=== PATIENT | female | born 1955 | race American Indian/Alaskan Native ===

== ENCOUNTER 2016-12-16 01:12 | Inpatient (IN) | payer BC, OTHER ==
[2016-12-16 02:18] LABS: INR 0.98 (0.87-1.13)
[2016-12-16 02:19] LABS: Partial Thromboplastin Time 30.5 Sec. (24.2-36.6)
[2016-12-16 02:31] LABS: Basophils % (Auto) 0.4 % (0.0-1.8); Eosinophils % (Auto) 5.4 % (0.0-4.3); Hematocrit 33.6 % (30.3-42.9); Hemoglobin 10.9 gm/dl (10.1-14.3); Mean Corpuscular HGB Conc 33 % (30-34); Mean Corpuscular Hemoglobin 26 pg (28-32); Mean Corpuscular Volume 80 fl (79-97); Platelet Count 335 K/mm3 (140-440); Red Blood Count 4.22 M/mm3 (3.65-5.03); White Blood Count 12.3 K/mm3 (4.5-11.0)
[2016-12-16 02:35] LABS: Calcium 9.3 mg/dL (8.4-10.2); Chloride 100.2 mmol/L (98-107); Potassium 4.3 mmol/L (3.6-5.0)
[2016-12-16] MEDS ORDERED: NORMODYNE IV ONE ×2 (03:29→03:30)
[2016-12-16] MEDS ORDERED: ZOFRAN IV ONE (04:59)
[2016-12-16] MEDS ORDERED: MORPHINE IV ONE (04:59)
[2016-12-16] MEDS ORDERED: APRESOLINE IV ONE (05:01)
[2016-12-16] MEDS ORDERED: ROBITUSSIN PO ONE (05:01)
[2016-12-16] MEDS ORDERED: TESSALON PERLES PO ONE (05:04)
--- NOTE | 2016-12-16 05:05 | Emergency Department Report ---
HPI - General Chief Complaint: Chest Pain Time Seen by Provider: 12/16/16 04:07 - HPI HPI: The patient is a 61-year-old female with a history of diabetes, presents for evaluation of chest pain. The patient reports chest pain for the past 2 days, left sided in location, sharp and at times pressure-like in quality, radiating to the left arm, 8/10 in severity, and associated with episodic dyspnea. The patient also admits to coughing and nasal congestion for the past 2 weeks. The patient denies fever, trauma to the chest, abdominal pain, vomiting, syncope, hemoptysis, unilateral leg swelling, recent immobilization, history of DVT or PE , recent cancer. ED Past Medical Hx - Past Medical History Previous Medical History?: Yes Hx Hypertension: Yes Hx Diabetes: Yes - Surgical History Past Surgical History?: Yes Additional Surgical History: hysterectomy - Social History Smoking Status: Never Smoker Substance Use Type: None - Medications Home Medications: Home Medications Medication Instructions Recorded Confirmed Last Taken Type Lisinopril [Zestril TAB] 40 mg PO QDAY #30 tablet 04/10/15 12/16/16 10/10/15 Rx metFORMIN 1,000 mg PO BID #60 04/10/15 12/16/16 12/15/16 Rx Gabapentin [Neurontin] 300 mg PO BID #60 cap 10/15/15 12/16/16 Unknown Rx ED Review of Systems ROS: Stated complaint: MARGARETTE, CHEST PAIN Other details as noted in HPI Constitutional: denies: fever ENT: denies: throat or neck pain Respiratory: reports cough, shortness of breath Cardiovascular: reports chest pain Endocrine: denies unexplained weight loss or gain Gastrointestinal: denies: abdominal pain, nausea Genitourinary: denies: dysuria Musculoskeletal: denies: leg swelling Skin: denies: rash Neurological: denies: headache Hematological/Lymphatic: denies: easy bleeding or easy bruising Psych: denies sadness or hopelessness Physical Exam - Physical Exam Vital Signs: Vital Signs 12/16/16 12/16/16 12/16/16 01:29 01:57 02:00 Temperature 98.4 F Pulse Rate 97 H 104 H 97 H Respiratory 24 28 H 17 Rate Blood Pressure 226/121 222/107 O2 Sat by Pulse 100 98 Oximetry 12/16/16 12/16/16 12/16/16 02:10 02:20 02:30 Temperature Pulse Rate 100 H 96 H 96 H Respiratory 29 H 22 20 Rate Blood Pressure 222/107 211/107 221/112 O2 Sat by Pulse 99 98 98 Oximetry 12/16/16 12/16/16 12/16/16 02:40 02:50 03:00 Temperature Pulse Rate 97 H 94 H 96 H Respiratory 19 17 15 Rate Blood Pressure 221/112 216/108 220/114 O2 Sat by Pulse 98 99 98 Oximetry 12/16/16 12/16/16 03:18 03:45 Temperature Pulse Rate 87 95 H Respiratory Rate Blood Pressure 220/114 223/116 O2 Sat by Pulse 99 Oximetry Physical Exam: General: well-nourished, well-developed, no acute distress Head: Normocephalic, atraumatic Eyes: normal sclera ENT: Mucous membranes are pink and moist Neck: trachea midline, neck supple, No neck stiffness, no cervical adenopathy Respiratory: Breath sounds equal bilaterally, no wheezing, rales, or rhonchi Cardio: S1 and S2 present, no murmurs, rubs, gallops, capillary refill is brisk Abdomen: Normoactive bowel sounds, soft abdomen, no rigidity, no guarding or rebound tenderness Musc: No pitting edema Skin: No rash Neuro: no facial drooping, normal speech Psych: Normal affect ED Course Vital Signs 12/16/16 12/16/16 12/16/16 01:29 01:57 02:00 Temperature 98.4 F Pulse Rate 97 H 104 H 97 H Respiratory 24 28 H 17 Rate Blood Pressure 226/121 222/107 O2 Sat by Pulse 100 98 Oximetry 12/16/16 12/16/16 12/16/16 02:10 02:20 02:30 Temperature Pulse Rate 100 H 96 H 96 H Respiratory 29 H 22 20 Rate Blood Pressure 222/107 211/107 221/112 O2 Sat by Pulse 99 98 98 Oximetry 12/16/16 12/16/16 12/16/16 02:40 02:50 03:00 Temperature Pulse Rate 97 H 94 H 96 H Respiratory 19 17 15 Rate Blood Pressure 221/112 216/108 220/114 O2 Sat by Pulse 98 99 98 Oximetry 12/16/16 12/16/16 03:18 03:45 Temperature Pulse Rate 87 95 H Respiratory Rate Blood Pressure 220/114 223/116 O2 Sat by Pulse 99 Oximetry ED Medical Decision Making - Lab Data Result diagrams: 12/16/16 01:49 12/16/16 01:49 - Medical Decision Making The patient was seen and examined by myself. The patient is placed on a quality assurance monitor final and continuous pulse ox. On initial evaluation, the patient was found to be in no distress. Evaluation orders were placed. The patient is given IV morphine for pain, and IV labetalol and IV hydralazine for her elevated blood pressure. Lab results reveal a creatinine of 1.4, and elevated glucose 200. The patient is given IV insulin for treatment of hyperglycemia. Otherwise lab results were unrevealing of chest pain, including normal troponin level. Chest x-rays negative. EKG was negative for acute infarct. The on-call hospitalist service was contacted. They agreed to admit the patient for further treatment and close monitoring. The ED admit order was placed. The patient was admitted in guarded condition. Critical care attestation.: If time is entered above; I have spent that time in minutes in the direct care of this critically ill patient, excluding procedure time. ED Disposition Clinical Impression: Acute chest pain, Hypertensive crisis, Acute hyperglycemia, ROXANNE (acute kidney injury) Disposition: OP ADMITTED IP TO THIS HOSP Is pt being admited?: Yes Does the pt Need Aspirin: Yes Condition: Fair Instructions: Chest Pain (ED) Referrals: PRIMARY CARE, [Primary Care Provider] - 3-5 Days Time of Disposition: 05:01
[2016-12-16] MEDS ORDERED: BABY ASPIRIN PO ONE (05:06)
[2016-12-16] MEDS ORDERED: TYLENOL PO PRN (05:22)
[2016-12-16] MEDS ORDERED: MORPHINE IV PRN ×2 (05:22→05:39)
[2016-12-16] MEDS ORDERED: NITROSTAT SL PRN (05:22)
[2016-12-16] MEDS ORDERED: ZOFRAN IV PRN (05:22)
[2016-12-16] MEDS ORDERED: NACL 0.9% 1000 ML 1,000 ML IV SCH (06:00)
[2016-12-16] MEDS: NITRO-BID 2% TP SCH ×4 (06:12→18:12)
[2016-12-16] MEDS: HEPARIN SUB-Q SCH ×3 (06:12→21:45)
--- NOTE | 2016-12-16 06:35 | Admit Criteria Form ---
Admission Criteria Documentation: HYPERTENSION Clinical Indications for Admission to Inpatient Care ( Place "X" for any and all applicable criteria): Admission is indicated for ANY ONE of the following(1)(2)(3)(4): [X ]I. Hypertensive emergency, with evidence of acute and progressing target organ disease as indicated by ANY ONE of the following: [ ]a) Hypertensive encephalopathy (eg, confusion, altered mental status) [ ]b) Cerebral infarction [ ]c) Intracranial hemorrhage [ ]d) Myocardial ischemia or infarction [ ]e) Pulmonary edema [ ]f) Aortic dissection [ ]g) Seizure [X ]h) Acute renal insufficiency [ ]i) Papilledema [ ]j) Microangiopathic hemolytic anemia [ ]II. Adrenergic crisis (eg, severe hypertension due to pheochromocytoma crisis, cocaine or amphetamine intoxication, or clonidine withdrawal) [X ]III. Severe hypertension (SBP greater than 180 mmHg or DBP greater than 110 mmHg or greater than the 95th percentile for age, gender, and height in pediatric patients) that cannot be controlled (eg, to SBP less than 160 mmHg and DBP less than 100 mmHg in adults) by treatment with oral medication in emergency department or observation care Extended stay beyond goal length of stay may be needed for(11)(12)(13): [ ]a) Persistent hypertensive encephalopathy [ ]b) Continuation of pulmonary edema [ ]c) Recurring or persistent severe hypertension [ ]d) Target organ damage (eg, angina, stroke, aortic dissection) [ ]e) Associated renal insufficiency The original [employer] content created by [employer] has been revised. The portions of the content which have been revised are identified through the use of italic text or in bold, and [facility] has neither reviewed nor approved the modified material. All other unmodified content is copyright [employer]. Please see references footnoted in the original [employer] edition 2016 Admission Criteria Met: Yes
[2016-12-16] MEDS ORDERED: AFRIN ONE (07:44)
[2016-12-16] MEDS: AFRIN NS PRN (07:50)
--- NOTE | 2016-12-16 08:17 | XRay Report ---
AP CHEST : 12/16/16 01:12:00 CLINICAL: Chest pain. COMPARISON:04/07/15 FINDINGS: Normal heart and pulmonary vessels. The lungs are normally expanded and clear except for a calcified granuloma in the left lower lobe. The bones and soft tissues are unremarkable. IMPRESSION: No acute cardiopulmonary process. Old granulomatous disease.
[2016-12-16] MEDS ORDERED: NON-FORMULARY (Metformin 1,000 MG) PO SCH (10:00)
--- NOTE | 2016-12-16 11:24 | History and Physical Report ---
CHIEF COMPLAINT: Chest pain. Other complaint includes nasal congestion. HISTORY OF PRESENT ILLNESS: The patient is a 61-year-old female who said she has been having pressure-like chest pain located in the precordial and retrosternal area radiating to the left upper extremity. Pain has been going on and off for about 2 weeks and was associated with shortness of breath and also pain is associated with cough and congestion in terms of nausea and diaphoresis. PAST MEDICAL HISTORY: Pertinent for hypertension, diabetes mellitus. PAST SURGICAL HISTORY: Pertinent for hysterectomy. FAMILY HISTORY: Noncontributory. SOCIAL HISTORY: The patient does not smoke, does not drink alcohol and does not use illicit drugs. MEDICATIONS: The patient is on lisinopril 40 mg by mouth daily, metformin 1000 mg by mouth twice daily, Neurontin 300 mg by mouth twice daily. ALLERGIES: THE PATIENT IS ALLERGIC TO IODINATED CONTRAST MEDIA. REVIEW OF SYSTEMS: CONSTITUTIONAL: There is no fever, no chills. Diaphoresis present. HEENT: There is no headache or sore throat. CARDIOVASCULAR SYSTEM: Chest pain present. No orthopnea. RESPIRATORY: Shortness of breath present. Cough present. Congestion present. GASTROINTESTINAL SYSTEM: There is no nausea. There is no vomiting. No abdominal pain, diarrhea or constipation. NEUROLOGICAL: There is no numbness, no dizziness, no altered mental status. MUSCULOSKELETAL: There is no joint pain or swelling. DERMATOLOGICAL: There is no skin rash or itching. GENITOURINARY: There is no dysuria, hematuria or flank pain. Rest of system review is normal. PHYSICAL EXAMINATION: GENERAL: At the time of exam, the patient was found to be alert, oriented x 3 and not in acute distress. VITAL SIGNS: Shows normal temperature with pulse of 89, respirations 16, blood pressure 203/93, O2 sat of 96% on room air. HEENT: Showed pupils to be equal, round, reactive to light and accommodation. Extraocular muscles are intact. NECK: Supple with no JVD or carotid bruits. CARDIOVASCULAR SYSTEM: Show first and second heart sounds with no gallops or rubs. RESPIRATORY: Showed good air entry on both sides of the lungs with no abnormal breath sounds. GASTROINTESTINAL: Show abdomen to be full, soft, nontender with no organomegaly or rigidity. NEUROLOGIC: Neuro exam shows no focal deficit. MUSCULOSKELETAL SYSTEM: Show no joint swelling or tenderness. DERMATOLOGICAL SYSTEM: Show no skin rash. GENITOURINARY: Showing no costovertebral angle tenderness. PERTINENT LABORATORY DATA AND IMAGING STUDIES: The patient had chest x-ray done with no report of any acute cardiopulmonary lesion. LAB RESULTS: CBC shows elevated white count of 12,300 with normal hemoglobin. CBC differential shows high monocyte pointing to allergic reaction. The patient's coagulation study was unremarkable. Chemistry shows elevated BUN of 28 with elevated creatinine of 1.4 and high blood glucose of 224. Troponin level was normal. DIAGNOSES: 1. Chest pain. 2. Acute kidney injury. PLAN: The patient will be admitted to medical floor on telemetry using chest pain pathway. We will have cardiac enzymes, troponin, total CK, and CK-MB checked q. 6 hours x 2 more levels. The patient will be on nitro paste 1 inch to anterior chest wall q. 6 hours and will be on IV morphine 2 mg every 2 hours as needed for pain and IV Zofran 4 mg every 6 hours as needed for nausea and vomiting. The patient will be on IV normal saline at 100 mL an hour. We will have basic metabolic panel checked tomorrow morning 12/17/2016. The patient will be on aspirin 325 mg by mouth daily and will be on Tylenol 650 mg every 4 hours for fever and headache and will be on oxygen per protocol. The patient will have Lexiscan stress test done in the morning. The patient's home medications will be reconciled and applied accordingly. JOB# [id number] [facility]/GUEVARA MTDCarmela
[2016-12-16] MEDS: ZESTRIL PO SCH (11:47)
[2016-12-16] MEDS: NEURONTIN PO SCH ×2 (11:47→21:45)
[2016-12-16] MEDS: GLUCOPHAGE PO SCH ×2 (11:48→21:57)
[2016-12-16 13:02] LABS: Creatine Kinase MB 5.3 ng/mL (0.0-4.0)
--- NOTE | 2016-12-16 14:52 | Discharge Summary ---
Providers - Providers Date of Admission: 12/16/16 05:21 Attending physician: MEGAN GONZALEZ MD Primary care physician: DIRECTOR OF CONTENT MARKETING Hospitalization Condition: Fair Hospital course: 61-year-old woman with a past medical history of hypertension who presented with chest pain. ACS was ruled out by negative troponins, she was planned for MPI, however MPI was canceled by cardiology given that she just had a negative cardiac cath in 2014. Patient admitted that her pain started after she was suffering from upper x-ray tract infection with stuffy nose and headache. Chest pain was most likely due to costochondritis related to upper 3 tract infection. She was given symptomatic relief medication for upper respiratory tract infection. Advised take NSAID as needed for chest pain. Discharge diagnoses Upper respiratory tract infection Costochondritis Acute sinusitis Disposition: DISCHARGED TO HOME OR SELFCARE Time spent for discharge: 35 minutes Core Measure Documentation - Palliative Care Palliative Care/ Comfort Measures: Not Applicable - Core Measures Any of the following diagnoses?: none Exam - Constitutional Vitals: Temp Pulse Resp BP Pulse Ox 98.0 F 92 H 14 169/89 98 12/16/16 10:47 12/16/16 10:47 12/16/16 10:47 12/16/16 10:47 12/16/16 10:47 General appearance: Present: no acute distress, well-nourished - EENT Eyes: Present: PERRL ENT: hearing intact, clear oral mucosa - Neck Neck: Present: supple, normal ROM - Respiratory Respiratory effort: normal Respiratory: bilateral: CTA - Cardiovascular Heart Sounds: Present: S1 & S2. Absent: rub, click - Extremities Extremities: pulses symmetrical, No edema Peripheral Pulses: within normal limits - Abdominal General gastrointestinal: Present: soft, non-tender, non-distended, normal bowel sounds Female genitourinary: Present: normal - Integumentary Integumentary: Present: clear, warm, dry - Musculoskeletal Musculoskeletal: gait normal, strength equal bilaterally - Psychiatric Psychiatric: appropriate mood/affect, intact judgment & insight - Neurologic Neurologic: CNII-XII intact, moves all extremities Plan Follow up with: PRIMARY CARE, [Primary Care Provider] - 3-5 Days Forms: Work/School Release Form Prescriptions: Aspirin EC [Aspirin Enteric Coated TAB] 81 mg PO QDAY #30 tablet. Fluticasone [Flonase] 100 mcg NS QDAY PRN #1 bottle PRN Reason: Allergy Symptoms Losartan [Cozaar] 100 mg PO QDAY #30 tablet Sodium Chloride [Haines] 37.5 ml NS QID #1 spray
[2016-12-16 17:37] LABS: Creatine Kinase MB 4.3 ng/mL (0.0-4.0)
[2016-12-16] MEDS ORDERED: FLONASE NS PRN (18:45)
[2016-12-16] MEDS: DEEP SEA NS SCH (21:44)
[2016-12-17] MEDS: NITRO-BID 2% TP SCH ×2 (06:07→10:57)
[2016-12-17] MEDS: HEPARIN SUB-Q SCH (06:09)
[2016-12-17] MEDS: AFRIN NS PRN (06:47)
[2016-12-17 08:19] LABS: BUN/Creatinine Ratio 15.29; Calcium 8.8 mg/dL (8.4-10.2); Chloride 106.7 mmol/L (98-107); Potassium 4.1 mmol/L (3.6-5.0)
[2016-12-17 09:21] VITALS: BP 187/91
--- NOTE | 2016-12-17 09:57 | Query- Chest Pain ---
Elsie Joyner Shama Date: 12/17/16 Front Desk Administrator/CDS: Han Vásquezmarcelamisha Phone#: [phone] Exercise your independent professional judgment when responding to query. Questions asked do not imply a particular answer is desired or expected. We greatly appreciate your clarification on this issue. Clinical Documentation States: 61 year old female was admitted on 12/16/16. The discharge summary states " Hospital course: Negative cath in 2014 chest pain costochondritis congestion, URTA " Please document the etiology of Chest Pain: [ ] Myocardial Infarction [ ] Pneumonia [ ] Mediastinitis [ ] Costochondritis [ ] Pulmonary Embolism [ ] Coronary Artery Disease [ ] GERD [ ] Other: [ ] Comment/Explanation: Present on Admission: [ ] Yes (Y) [ ] Clinically undeterminable (W) [ ] No(N) Please document response in your Progress Notes and/or Discharge Summary and indicate if the condition was present on admission. GABO
[2016-12-17] MEDS ORDERED: ASPIRIN PO SCH (10:00)
--- NOTE | 2016-12-17 10:01 | Query- Renal Failure ---
Elsie Joyner____[place]ia Date:____12/17/16 Artist Relationship Manager/CDS:___Han Castro Phone#:____[phone] Exercise your independent professional judgment when responding to query. Questions asked do not imply a particular answer is desired or expected. We greatly appreciate your clarification on this issue. Clinical Documentation States: 61 year old female was admitted on 12/16/16. The H&P states " Acute kidney injury" The discharge summary states " Hospital course: Negative cath in 2014 chest pain costochondritis congestion, URTA " Clinical Findings Show: 12/16/16 12/17/16 Creatinine: 1.4 1.7 Please clarify if you mean: Acute Renal Failure with or due to: [ ] Tubular Necrosis [ ] Medullary Necrosis [x ] Vasomotor Nephropathy [ ] Shock Kidney [ ] Tubular Nephrosis [ ] Renal Tubular Stasis [ ] Cortical Necrosis [ ] Acute Renal Failure (unspecified) [ ] Lower Tubular Nephrosis [ ] Other: [ ] Not Applicable Present on Admission: [x ] Yes (Y) [ ] Clinically undeterminable (W) [ ] No (N) Please also document response in your Progress Notes and/or Discharge Summary and indicate if the condition was present on admission. HERLINDAD
[2016-12-17] MEDS: ZESTRIL PO SCH (10:57)
[2016-12-17] MEDS: NEURONTIN PO SCH (10:57)
[2016-12-17] MEDS: DEEP SEA NS SCH (11:00)
== END 2016-12-17 11:50 | disposition home or self-care (01) | DRG 205 ==
LOC: ED 01:12 → 4A 05:21
PROVIDERS: ADMIT Internal Medicine; ATTEND Internal Medicine
DX: M94.0 Chondrocostal junction syndrome [Tietze] (principal); N17.0 Acute kidney failure with tubular necrosis; I16.9 Hypertensive crisis, unspecified; I10 Essential (primary) hypertension; E11.65 Type 2 diabetes mellitus with hyperglycemia; J06.9 Acute upper respiratory infection, unspecified; J01.90 Acute sinusitis, unspecified; Z90.710 Acquired absence of both cervix and uterus
CPT/HCPCS: 36415; 71010; 80048; 82140; 82550; 82553; 82805; 82962; 83880; 84484; 85025; 85610; 85730; 93005; 93010; 96374; 96375; 99285; J0360; J1644; J1815; J2270; J2405; J7030

== ENCOUNTER 2017-09-22 21:10 | Inpatient (IN) | payer BC, OTHER ==
[2017-09-22] MEDS ORDERED: ASPIRIN PO ONE (21:30)
[2017-09-22] MEDS ORDERED: CATAPRES PO ONE (21:31)
[2017-09-22 21:47] LABS: Basophils # (Auto) 0.1 K/mm3 (0.0-0.1); Basophils % (Auto) 0.7 % (0.0-1.8); Eosinophils # (Auto) 0.5 K/mm3 (0.0-0.4); Eosinophils % (Auto) 4.3 % (0.0-4.3); Hematocrit 27.2 % (30.3-42.9); Hemoglobin 8.9 gm/dl (10.1-14.3); Lymphocytes # (Auto) 3.8 K/mm3 (1.2-5.4); Lymphocytes % (Auto) 30.2 % (13.4-35.0); Mean Corpuscular HGB Conc 33 % (30-34); Mean Corpuscular Hemoglobin 26 pg (28-32); Mean Corpuscular Volume 80 fl (79-97); Monocytes # (Auto) 1.1 K/mm3 (0.0-0.8); Monocytes % (Auto) 8.8 % (0.0-7.3); Platelet Count 404 K/mm3 (140-440); Red Blood Count 3.41 M/mm3 (3.65-5.03); Red Cell Distribution Width 15.2 % (13.2-15.2)
[2017-09-22 22:01] LABS: Calcium 8.7 mg/dL (8.4-10.2)
[2017-09-23] MEDS ORDERED: APRESOLINE IV ONE (01:00)
--- NOTE | 2017-09-23 01:07 | Emergency Department Report ---
ED Chest Pain HPI - General Chief Complaint: Chest Pain Stated Complaint: CP Time Seen by Provider: 09/23/17 00:45 Source: patient Mode of arrival: Ambulatory Limitations: No Limitations - History of Present Illness Initial Comments: 61-year-old -German female presents to the emergency department with complaint of some midsternal chest pain/heaviness that has been going on intermittently over the past few weeks and/or month, but worsened this evening while she was at the movies. It is associated with some shortness of breath but she denies any nausea, vomiting, back pain or diaphoresis. She did not take anything for her symptoms were to presentation. 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 She denies any tobacco or illicit drug use or abuse. No recent travel or sick contacts at home. She has a history of [id number] diabetes and hypertension. She has been out of her hypertension medication, losartan, the past 2 weeks and presents with very elevated blood pressure. She denies any history of MS and had a heart catheterization done here in March 2015 that showed normal coronaries and an ejection fraction of 55-60%. Severity scale (0 -10): 6 - Related Data Previous Rx's Medication Instructions Recorded Last Taken Type metFORMIN 1,000 mg PO BID #60 04/10/15 12/15/16 Rx Gabapentin [Neurontin] 300 mg PO BID #60 cap 10/15/15 Unknown Rx Aspirin EC [Aspirin Enteric Coated 81 mg PO QDAY #30 tablet. 12/16/16 Unknown Rx TAB] Sodium Chloride [[place]] 37.5 ml NS QID #1 spray 12/16/16 Unknown Rx Fluticasone [Flonase] 100 mcg NS QDAY PRN #1 bottle 12/17/16 Unknown Rx Losartan [Cozaar] 100 mg PO QDAY #30 tablet 12/17/16 Unknown Rx Allergies Allergy/AdvReac Type Severity Reaction Status Date / Time Iodinated Contrast- Oral and Allergy Severe Swelling Verified 04/08/15 16:53 IV Dye Heart Score - HEART Score History: Moderately suspicious EKG: Non-specific Age: 45-65 Risk factors: 1-2 risk factors Troponin: > 3x normal limit HEART Score: 6 - Critical Actions Critical Actions: 4-6 pts:12-16.6% risk of adverse cardiac event. Should be admitted ED Review of Systems ROS: Stated complaint: CP Other details as noted in HPI Comment: All other systems reviewed and negative Constitutional: denies: chills, fever Eyes: denies: eye pain, eye discharge, vision change ENT: denies: ear pain, throat pain Respiratory: shortness of breath. denies: cough Cardiovascular: chest pain. denies: palpitations Gastrointestinal: denies: abdominal pain, nausea, diarrhea Genitourinary: denies: urgency, dysuria, discharge Musculoskeletal: denies: back pain, joint swelling, arthralgia Skin: denies: rash, lesions Neurological: denies: headache, weakness, paresthesias ED Past Medical Hx - Past Medical History Previous Medical History?: Yes Hx Hypertension: Yes Hx Diabetes: Yes - Surgical History Past Surgical History?: Yes Additional Surgical History: hysterectomy - Social History Smoking Status: Never Smoker Substance Use Type: None - Medications Home Medications: Home Medications Medication Instructions Recorded Confirmed Last Taken Type metFORMIN 1,000 mg PO BID #60 04/10/15 12/16/16 12/15/16 Rx Gabapentin [Neurontin] 300 mg PO BID #60 cap 10/15/15 12/16/16 Unknown Rx Aspirin EC [Aspirin Enteric Coated 81 mg PO QDAY #30 tablet.dr 12/16/16 Unknown Rx TAB] Sodium Chloride [[place]] 37.5 ml NS QID #1 spray 12/16/16 Unknown Rx Fluticasone [Flonase] 100 mcg NS QDAY PRN #1 bottle 12/17/16 Unknown Rx Losartan [Cozaar] 100 mg PO QDAY #30 tablet 12/17/16 Unknown Rx ED Physical Exam - General Limitations: No Limitations - Other Other exam information: GENERAL: The patient is well-developed well-nourished. HENT: Normocephalic. Atraumatic. Patient has moist mucous membranes. EYES: Extraocular motions are intact. Pupils equal reactive to light bilaterally. NECK: Supple. Trachea is midline. CHEST/LUNGS: Slightly coarse breath sounds throughout the chest. No tachypnea or accessory muscle use. There is no respiratory distress noted. Chest pain is not reproducible to palpation of the chest wall. HEART/CARDIOVASCULAR: Regular. There is no tachycardia. There is no murmur. ABDOMEN: Abdomen is soft, nontender. Patient has normal bowel sounds. There is no abdominal distention. SKIN: Skin is warm and dry. NEURO: The patient is awake, alert, and oriented. The patient is cooperative. The patient has no focal neurologic deficits. The patient has normal speech. MUSCULOSKELETAL: There is no tenderness or deformity. There is no limitation range of motion. There is no evidence of acute injury. ED Course Vital Signs 09/22/17 09/22/17 09/22/17 21:25 21:36 22:32 Temperature 98.4 F Pulse Rate 104 H 104 H 92 H Respiratory 22 14 Rate Blood Pressure 209/105 209/105 Blood Pressure 193/96 [Left] O2 Sat by Pulse 94 98 Oximetry 09/23/17 09/23/17 09/23/17 01:11 01:15 01:17 Temperature Pulse Rate 95 H Respiratory 17 18 Rate Blood Pressure 196/102 Blood Pressure [Left] O2 Sat by Pulse 97 97 95 Oximetry 09/23/17 09/23/17 09/23/17 01:30 02:00 02:11 Temperature Pulse Rate 93 H 86 85 Respiratory 23 21 Rate Blood Pressure 183/92 197/106 197/106 Blood Pressure [Left] O2 Sat by Pulse 96 97 Oximetry 09/23/17 09/23/17 09/23/17 02:30 03:00 03:30 Temperature Pulse Rate 88 86 88 Respiratory 18 17 17 Rate Blood Pressure 173/86 163/82 157/79 Blood Pressure [Left] O2 Sat by Pulse 96 95 96 Oximetry 09/23/17 03:47 Temperature Pulse Rate 95 H Respiratory Rate Blood Pressure 176/88 Blood Pressure [Left] O2 Sat by Pulse Oximetry LEX score - Lex Score Age > 65: (0) No Aspirin use within the Past 7 Days: (0) No 3 or more CAD Risk Factors: (1) Yes 2 or more Angina events in past 24 hrs: (1) Yes Known CAD with more than 50% Stenosis: (0) No Elevated Cardiac Markers: (1) Yes ST Deviation Greater than 0.5mm: (0) No LEX Score: 3 ED Medical Decision Making - Lab Data Result diagrams: 09/22/17 21:38 09/22/17 21:38 - EKG Data -: EKG Interpreted by Mo EKG shows normal: sinus rhythm, axis, intervals, QRS complexes (LVH), ST-T waves Rate: tachycardia (105 bpm) - EKG Data When compared to previous EKG there are: previous EKG unavailable Interpretation: LVH (with mild tachycardia at 105 bpm) - Radiology Data Radiology results: image reviewed interpreted by me: Chest x-ray shows some cardiomegaly and some pulmonary vascular congestion concerning for possible CHF. No obvious pneumonia. - Medical Decision Making Patient presents with some acute on chronic chest pain but worse today than usual. EKG shows some LVH but otherwise no ST elevation MS. The patient has what appears to be acute kidney injury and renal failure. Labs show elevated troponins. They are trending down but unknown if the troponins are elevated secondary to coronary artery disease versus her renal insufficiency. Chest x- ray shows possible mild CHF. She does not appear significantly volume overloaded and therefore with her renal insufficiency I will hold off on starting diuresis and she will be seen later this morning or early afternoon by cardiology. D-dimer came back elevated equivocal and I was going to get a VQ scan to rule out pulmonary embolism, but this will have to wait until later this afternoon as the nuclear medicine team does not have the appropriate chemicals to run that test. All the labs and imaging studies thus far have been discussed with the patient as well as the plan for admission and she understands and agrees the plan. The patient has been accepted for admission by the hospitalist, Dr. Hernandez. - Differential Diagnosis MS, CHF, Pneumonia, PE Critical Care Time: No Critical care attestation.: If time is entered above; I have spent that time in minutes in the direct care of this critically ill patient, excluding procedure time. ED Disposition Clinical Impression: Hypertensive urgency, Elevated troponin Chest pain Qualifiers: Chest pain type: unspecified Qualified Code(s): R07.9 - Chest pain, unspecified Acute renal failure Qualifiers: Acute renal failure type: unspecified Qualified Code(s): N17.9 - Acute kidney failure, unspecified Disposition: OP ADMIT IP TO THIS HOSP Is pt being admited?: Yes Condition: Stable Time of Disposition: 02:53
--- NOTE | 2017-09-23 01:43 | XRay Report ---
FINAL REPORT EXAM: XR CHEST ROUTINE 2V HISTORY: Chest pain TECHNIQUE: PA and lateral views of the chest were obtained. PRIORS: None. FINDINGS: Mild enlargement of the cardiac silhouette. Central increased interstitial markings with suggested mild cephalization and small bilateral pleural effusions. There is no lobar consolidation. No acute osseous abnormality. IMPRESSION: Enlargement of the cardiac silhouette with increased interstitial markings, cephalization small effusions. Findings suggestive of congestive heart failure. Correlation with clinical exam requested.
[2017-09-23 02:40] LABS: Chol/HDL Ratio 6.58 %
[2017-09-23] MEDS ORDERED: NORVASC PO ONE (03:04)
--- NOTE | 2017-09-23 03:07 | History and Physical Report ---
History of Present Illness Date of examination: 09/23/17 Chief complaint: Chest pressure History of present illness: 61-year-old -Samo[place] female with past medical history significant for hypertension, diabetes mellitus type 2, allergic rhinitis, CKD presented to the emergency department with complaints of chest pressure that has been going on for the last few weeks getting worse since last night. Midsternal chest pressure , 10/10 in intensity, with no radiation, associated with shortness of breath, no alleviating or aggravating factors identified. Patient has associated shortness of breath and minimal feet swelling. Patient ran out of her blood pressure medications for the last couple of weeks because of financial issues. Patient was admitted for chest pain previously in cardiac cath was done 9 months ago and was clean. REVIEW OF SYSTEMS: GENERAL: no weight change, no fatigue, no fever HEAD: no head ache EYES: no blurry vision, no acute visual loss EARS: no hearing loss, no discharge, no earache NOSE: no stuffiness, no sneezing, no discharge MOUTH, THROAT AND NECK: no bleeding gums, no sore throat, no swollen neck CARDIAC: As stated in the HPI. RESPIRATORY: As stated in the HPI. GI: no decreased appetite, no nausea, no vomiting, no dysphagia, no diarrhea, no constipation, no abdominal pain URINARY: no change in frequency, no urgency, no polyuria, no hematuria, no incontinence MUSCULOSKELETAL: no muscle weakness, no pain, no joint stiffness NEUROLOGIC: no loss of sensation/numbness, no tingling, no tremors, no weakness/ paralysis HEMATOLOGIC: no anemia, no easy bruising SKIN: no rashes ENDOCRINE: no heat/cold intolerance, no polyuria, no polydipsia, no thyroid problems PSYCHIATRIC: no anxiety, no depression, no suicidal ideations Past History Past Medical History: diabetes, hypertension, renal failure Past Surgical History: hysterectomy Social history: full code. denies: smoking, alcohol abuse, prescription drug abuse, IV drug use Family history: CAD (dad), diabetes (mom) Medications and Allergies Allergies Allergy/AdvReac Type Severity Reaction Status Date / Time Iodinated Contrast- Oral and Allergy Severe Swelling Verified 04/08/15 16:53 IV Dye Home Medications Medication Instructions Recorded Confirmed Last Taken Type metFORMIN 1,000 mg PO BID #60 04/10/15 12/16/16 12/15/16 Rx Gabapentin [Neurontin] 300 mg PO BID #60 cap 10/15/15 12/16/16 Unknown Rx Aspirin EC [Aspirin Enteric Coated 81 mg PO QDAY #30 tablet. 12/16/16 Unknown Rx TAB] Sodium Chloride [[place]] 37.5 ml NS QID #1 spray 12/16/16 Unknown Rx Fluticasone [Flonase] 100 mcg NS QDAY PRN #1 bottle 12/17/16 Unknown Rx Losartan [Cozaar] 100 mg PO QDAY #30 tablet 12/17/16 Unknown Rx Active Meds: Active Medications Amlodipine Besylate (Norvasc) 10 mg PO ONCE ONE Stop: 09/23/17 03:05 Aspirin (Halfprin Ec) 81 mg PO QDAY CHAVEZ Fluticasone Propionate (Flonase) 100 mcg NS QDAY PRN PRN Reason: Allergy Symptoms Heparin Sodium (Porcine) (Heparin) 5,000 unit SUB-Q Q8HR CHAVEZ Sodium Chloride ([place]) spray NS QID CHAVEZ Exam - Physical Exam Narrative exam: Not in cardiopulmonary distress. The patient appeared well nourished and normally developed. Vital signs as documented. Head exam is unremarkable. No scleral icterus . Neck is without jugular venous distension, thyromegaly, or carotid bruits. Lungs are clear to auscultation. Cardiac exam reveals regular rate and Rhythm. Abdominal exam reveals normal bowel sounds, no masses, no organomegaly and no aortic enlargement. Extremities trace feet edema. 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 No focal weakness. - Constitutional Vitals: Temp Pulse Resp BP Pulse Ox 98.4 F 86 17 163/82 95 09/22/17 21:25 09/23/17 03:00 09/23/17 03:00 09/23/17 03:00 09/23/17 03:00 Results - Labs CBC & Chem 7: 09/22/17 21:38 09/22/17 21:38 Labs: Laboratory Last Values WBC 12.6 K/mm3 (4.5-11.0) H 09/22/17 21:38 RBC 3.41 M/mm3 (3.65-5.03) L 09/22/17 21:38 Hgb 8.9 gm/dl (10.1-14.3) L 09/22/17 21:38 Hct 27.2 % (30.3-42.9) L 09/22/17 21:38 MCV 80 fl (79-97) 09/22/17 21:38 MCH 26 pg (28-32) L 09/22/17 21:38 MCHC 33 % (30-34) 09/22/17 21:38 RDW 15.2 % (13.2-15.2) 09/22/17 21:38 Plt Count 404 K/mm3 (140-440) 09/22/17 21:38 Lymph % (Auto) 30.2 % (13.4-35.0) 09/22/17 21:38 Bacon % (Auto) 8.8 % (0.0-7.3) H 09/22/17 21:38 Eos % (Auto) 4.3 % (0.0-4.3) 09/22/17 21:38 Baso % (Auto) 0.7 % (0.0-1.8) 09/22/17 21:38 Lymph # 3.8 K/mm3 (1.2-5.4) 09/22/17 21:38 Bacon # 1.1 K/mm3 (0.0-0.8) H 09/22/17 21:38 Eos # 0.5 K/mm3 (0.0-0.4) H 09/22/17 21:38 Baso # 0.1 K/mm3 (0.0-0.1) 09/22/17 21:38 Seg Neutrophils % 56.0 % (40.0-70.0) 09/22/17 21:38 Seg Neutrophils # 7.1 K/mm3 (1.8-7.7) 09/22/17 21:38 D-Dimer 769.69 ng/mlDDU (0-234) H 09/23/17 01:04 Sodium 139 mmol/L (137-145) 09/22/17 21:38 Potassium 5.1 mmol/L (3.6-5.0) H 09/22/17 21:38 Chloride 103.8 mmol/L (98-107) 09/22/17 21:38 Carbon Dioxide 22 mmol/L (22-30) 09/22/17 21:38 Anion Gap 18 mmol/L 09/22/17 21:38 BUN 44 mg/dL (7-17) H 09/22/17 21:38 Creatinine 4.2 mg/dL (0.7-1.2) H 09/22/17 21:38 Estimated GFR 13 ml/min 09/22/17 21:38 BUN/Creatinine Ratio 10 % 09/22/17 21:38 Glucose 168 mg/dL (65-100) H 09/22/17 21:38 Calcium 8.7 mg/dL (8.4-10.2) 09/22/17 21:38 Troponin T 0.087 ng/mL (0.00-0.029) H 09/23/17 00:22 Triglycerides 234 mg/dL (2-149) H 09/23/17 00:22 Cholesterol 191 mg/dL (50-199) 09/23/17 00:22 LDL Cholesterol Direct 116 mg/dL (50-130) 09/23/17 00:22 HDL Cholesterol 29 mg/dL (40-59) L 09/23/17 00:22 Cholesterol/HDL Ratio 6.58 % 09/23/17 00:22 - Imaging and Cardiology Chest x-ray: report reviewed (mild pulmonary chest congestion) Assessment and Plan Assessment and plan: Chest pain, NSTEMI Shortness of breath Hypertensive emergency Acute on chronic renal failure Diabetes mellitus type 2 Medication non compliance - blood pressure control, lexiscan, stress test, cardiology consult, echo - Acute on chronic renal failure, nephrology consult - SSI DVT prophylaxis - on heparin Disposition - Admit to telemetry Advance Directives: Yes VTE prophylaxis?: Chemical Plan of care discussed with patient/family: Yes
[2017-09-23] MEDS ORDERED: NORVASC ONE (03:39)
[2017-09-23] MEDS ORDERED: D50W (25GM) Syringe IV PRN (03:49)
[2017-09-23] MEDS: HEPARIN SUB-Q SCH ×3 (06:29→22:06)
[2017-09-23] MEDS: HumaLOG SUB-Q SCH ×4 (07:30→22:08)
[2017-09-23] MEDS: DEEP SEA NS SCH ×4 (10:00→22:09)
[2017-09-23] MEDS: CATAPRES PO SCH ×3 (10:00→22:06)
[2017-09-23] MEDS ORDERED: NON-FORMULARY (Losartan [Cozaar] 100 MG) PO SCH (10:00)
--- NOTE | 2017-09-23 10:09 | Nuclear Medicine Report ---
VENTILATION PERFUSION SCAN INDICATION: Shortness of breath, elevated d-dimer. COMPARISON: None similar. FINDINGS: VQ scan performed in anterior, posterior, lateral and oblique projections. 4 mCi of technetium 99m MAA was used for the perfusion assessment while 12 millicuries of Xenon 133 was utilized for the ventilation portion of the study. Ventilation images demonstrate fairly uniform radiotracer distribution throughout both lungs. Slight air trapping though possible, left more than right. The perfusion correlates with the ventilation without large lobar or definite segmental defects. Available chest radiograph from 1:07 AM earlier today suggests early/mild CHF with small bibasilar pleural effusions. CONCLUSION: Low probability exam for pulmonary embolism. Thank you for the opportunity to participate in this patient's care.
--- NOTE | 2017-09-23 10:52 | Consultation ---
History of Present Illness - Reason for Consult Consult date: 09/23/17 acute renal failure Requesting physician: MELANIE SOSA - History of Present Illness This is a 61 yo AAF with past medical history of Hypertension, non-insulin dependent Type 2 DM, who presents to [facility] ER on 09/23/17 with complaints of shortness of breath, dyspnea on exertion, and midsternal chest tightness. As per pt above symptoms have been going on for the past few weeks with progressive intensity. Pt states that she ran out of her BP and DM medications ( incl. metformin and losartan) about 2 weeks ago. in ER patient was found to be in hypertensive emergency with BP as high as 209/105mmHg, CXR showed evidence of cardiomegaly with increased interstitial markings[place] [address] and D-dimer at 769. Pt underwent VQ scan which showed low probability for PE. Labs also showed elevated BUN/Cr at 44/4.2mg/dl for which renal consult is requested. Pt states that in Summer 2016 she was referred to a rn peritoneal dialysis because of abnormal kidney function, however could not f/u because copay was too high. Pt does not know what her baseline kidney function is, last Cr documented here was 1.7mg/dl in 12/2016. Pt states that she lost her insurance last Summer and since then did not have regular medical follow up. pt denies fever, chills, nausea, vomiting, dysuria, abd pain, diarrhea, rash, dizziness, blurry vision. Denies recent NSAIDs use or IV contrast exposure. Past History Past Medical History: diabetes, hypertension, renal failure Past Surgical History: hysterectomy Social history: full code. denies: smoking, alcohol abuse, prescription drug abuse, IV drug use Family history: CAD (dad), diabetes (mom), other (mother was on HD due to diabetic nephropathy/HTN. Son is also on HD due to renal failure of unclear etiology. ) Medications and Allergies Allergies Allergy/AdvReac Type Severity Reaction Status Date / Time Iodinated Contrast- Oral and Allergy Severe Swelling Verified 04/08/15 16:53 IV Dye Home Medications Medication Instructions Recorded Confirmed Last Taken Type Gabapentin [Neurontin] 300 mg PO BID #60 cap 10/15/15 09/23/17 Unknown Rx Aspirin EC [Aspirin Enteric Coated 81 mg PO QDAY #30 tablet. 12/16/16 Unknown Rx TAB] Fluticasone [Flonase] 100 mcg NS QDAY PRN #1 bottle 12/17/16 09/23/17 Unknown Rx Losartan [Cozaar] 100 mg PO QDAY #30 tablet 12/17/16 09/23/17 Unknown Rx Active Meds: Active Medications Aspirin (Halfprin Ec) 81 mg PO QDAY CHAVEZ Clonidine HCl (Catapres) 0.2 mg PO Q12HR CHAVEZ Dextrose (D50w (25gm) Syringe) 50 ml IV PRN PRN PRN Reason: Hypoglycemia Fluticasone Propionate (Flonase) 100 mcg NS QDAY PRN PRN Reason: Allergy Symptoms Heparin Sodium (Porcine) (Heparin) 5,000 unit SUB-Q Q8HR CHAVEZ Last Admin: 09/23/17 06:29 Dose: 5,000 unit Influenza Virus Vaccine Quadrival (Fluarix Quad [id number](36 Mos+) 0.5 ml IM .ONCE ONE Stop: 09/24/17 12:01 Insulin Human Lispro (Humalog) 0 unit SUB-Q ACHS CHAVEZ; Protocol Sodium Chloride ([place] Sea) 1 spray NS QID CHAVEZ Exam - Vital Signs Vital signs: Vital Signs Temp Pulse Resp BP Pulse Ox 98.4 F 104 H 22 209/105 94 09/22/17 21:25 09/22/17 21:25 09/22/17 21:25 09/22/17 21:25 09/22/17 21:25 - General Appearance General appearance: well-developed, well-nourished, appears stated age EENT: ATNC, PERRL, mucous membranes moist Neck: Present: neck supple Respiratory: Rales, Decreased Breath Sounds Heart: regular, S1S2 Gastrointestinal: Present: normoactive bowel sounds Integumentary: no rash, other (1+ edema b/l LE ) Neurologic: no focal deficit, alert and oriented x3, strength 5/5, CN 3-12 intact Psychiatric: mood/affect appropriate, cooperative Results - Lab Results 09/22/17 21:38 09/22/17 21:38 Most recent lab results Calcium 8.7 mg/dL (8.4-10.2) 09/22/17 21:38 Laboratory Tests 09/22/17 09/23/17 09/23/17 21:38 00:22 01:04 D-Dimer 769.69 H Calcium 8.7 Troponin T 0.096 H 0.087 H NT-Pro-B Natriuret Pep Triglycerides 234 H Cholesterol 191 LDL Cholesterol Direct 116 HDL Cholesterol 29 L Cholesterol/HDL Ratio 6.58 09/23/17 09/23/17 04:21 04:21 D-Dimer Calcium Troponin T 0.098 H NT-Pro-B Natriuret Pep 46766 H Triglycerides Cholesterol LDL Cholesterol Direct HDL Cholesterol Cholesterol/HDL Ratio Assessment and Plan - Patient Problems (1) Acute renal failure Current Visit: Yes Status: Acute Qualifiers: Acute renal failure type: unspecified Qualified Code(s): N17.9 - Acute kidney failure, unspecified Plan to address problem: Suspect acute kidney injury superimposed on CKD, possible malignant hypertension /ATN, cardiorenal syndrome to be rule out. Progressive CKD cannot be rule out, secondary to underlying diabetic nephropathy /hypertensive nephrosclerosis. check UA, urine lytes, urine protein/cr ratio. check C3,4, PTH. will obtain renal US to assess for structural abnormalities, to rule out obstructive nephropathy. Supportive care for ROXANNE/CKD avoid nephrotoxins, NSAIDs, IV contrast ' will monitor lytes/renal parameters and make further recommendations (2) Hypertensive urgency Current Visit: Yes Status: Acute Plan to address problem: BP control with IV hydralazine, pt also started on amlodipine 10mg po qd and clonidine 0.2mg po bid. Will monitor BP and adjust meds accordingly (3) Chest pain Current Visit: Yes Status: Acute Qualifiers: Chest pain type: unspecified Qualified Code(s): R07.9 - Chest pain, unspecified Plan to address problem: follow cardiology recommendations. mildly elevated trop likely due to renal failure. awaiting stress test, ECHO (4) Pulmonary edema Current Visit: Yes Status: Acute Plan to address problem: secondary to hypertensive emergency, BP improved, start lasix 40mg po qd (5) Anemia in chronic illness Current Visit: Yes Status: Acute Plan to address problem: check iron store, ferritin level (6) Type 2 diabetes mellitus with diabetic chronic kidney disease Current Visit: Yes Status: Acute Plan to address problem: glucose control as per primary attending
--- NOTE | 2017-09-23 11:16 | Event Note ---
Date: 09/23/17 Cardio note dictated Chest pain- normal cath in 2015 per patient Mildly elevated troponin ? significance in the presence of renal failure HTN Diabetes with peripheral neuropathy Pt just returned from VQ scan will review the same Will follow Thank you BRANDON Carter MD
[2017-09-23] MEDS ORDERED: APRESOLINE IV PRN (11:39)
--- NOTE | 2017-09-23 17:45 | Event Note ---
Date: 09/23/17 Patient seen and examined, in no acute distress. Will add hydralazine for better BP control.
[2017-09-23] MEDS: HALFPRIN EC PO SCH (17:47)
[2017-09-23] MEDS: LASIX PO SCH (17:47)
[2017-09-23] MEDS ORDERED: HumaLOG SUB-Q ONE (18:00)
[2017-09-23 19:52] LABS: Bacteria,Urine 3+ /HPF (Negative); Bilirubin,Urine NEG (Negative); Blood,Urine NEG (Negative); Color,Urine Yellow (Yellow); Urobilinogen,Urine < 2.0 mg/dL (<2.0)
[2017-09-23 20:00] LABS: Creatinine,Urine 88.6 mg/dL (0.1-20.0)
--- NOTE | 2017-09-23 20:15 | Consultation ---
REFERRING PHYSICIAN: Dr. Long HISTORY OF PRESENT ILLNESS: The patient is a 61-year-old female, presents to the Emergency Room with chest discomfort described as pressure and heaviness. This has been going on for the past several days. Three days ago, she was at movies and after watching the movie while she was in the corridor, she had more significant chest pain and also had difficulty in breathing. The patient came to the Emergency Room and she still complains about the discomfort. The patient apparently had cardiac catheterization done in 03/2015, which showed normal coronary anatomy. The patient denies significant exertional pain. She is somewhat vague about the total duration of the discomfort. She has told the Emergency Room that her chest pain has been there for the past month or so, but has gotten aggravated after she went to see the movies. The patient is known to have a longstanding history of hypertension, diabetes, and hyperlipidemia. She is also known to have peripheral neuropathy. The patient is currently a nonsmoker and nonalcoholic. She had hysterectomy in the past. REVIEW OF SYSTEMS: HEENT: No symptoms. ENDOCRINE: History of thyroid. No history of thyroid problems. RESPIRATORY: The patient is known to have diabetes and has been on insulin. GENITOURINARY: No symptoms. The patient did have a hysterectomy in the past. CENTRAL NERVOUS SYSTEM: No history of cerebrovascular accident. However, 35-40 years ago, she was told that she may have had mini strokes. GASTROINTESTINAL: No abdominal pain, nausea, or vomiting. Bowel habits have been regular. LOCOMOTOR: No symptoms. PHYSICAL EXAMINATION: GENERAL: Adult female, very emotional and crying at this time, but in no acute distress. VITAL SIGNS: Blood pressure 160/80, pulse 85, respirations 18, afebrile. HEENT: Unremarkable. NECK: Supple. No thyromegaly. Both carotids are palpable and equal. Neck veins are flat. HEART: Grade 1-2/6 ejection systolic murmur is present. ABDOMEN: Soft, nontender, no hepatosplenomegaly. Peristaltic sounds are heard well. EXTREMITIES: No edema or calf tenderness. DIAGNOSTIC DATA: EKG: Sinus rhythm, possible left ventricular hypertrophy, minor ST changes. LABORATORY DATA: WBC is 12.6, hemoglobin 8.9, hematocrit 27.2. D-dimer is 769. Sodium is 139, potassium 5.1, BUN 44, creatinine 4.2, glucose 168. Troponin is 0.096 and 0.087 [place] 0[place] [address], triglycerides 234. Total cholesterol is 191, LDL 116, HDL 29. IMPRESSION: 1. Chest pain, etiology is uncertain. 2. Diabetes. 3. Hypertension. 4. Hyperlipidemia. 5. Renal failure. 6. Status post hysterectomy. PLAN: The patient is seen for cardiac evaluation. Clinically, cardiac status is stable. She is quite unhappy regarding the renal function. She just had a lung scan done, will review the same. The patient monitored and followed closely. She will need a stress test at some point because of mild elevation of the troponins and the chest pains. The patient will be followed closely. Thank you, Dr. Long, for allowing me to participate in the care of this pleasant lady. Multiple issues were discussed with the family members. JOB# [id number] DANNY/NTS
[2017-09-23] MEDS: FLONASE NS PRN (22:07)
[2017-09-24] MEDS: LASIX PO SCH (07:29)
[2017-09-24] MEDS: HEPARIN SUB-Q SCH ×3 (07:29→21:54)
--- NOTE | 2017-09-24 07:34 | Ultrasound Report ---
FINAL REPORT PROCEDURE: US RENAL BILAT TECHNIQUE: Real-time sonography in multiple planes of the kidneys, ureters and urinary bladder was performed with image documentation. CPT 18037 HISTORY: ROXANNE COMPARISON: No prior studies are available for comparison. FINDINGS: RIGHT kidney: Normal echotexture. No focal renal mass, calculus, or hydronephrosis. Length: 10.7 cm. LEFT kidney: Normal echotexture. No focal renal mass, calculus, or hydronephrosis. Length: 10.6cm. Bladder: Normal. There are bilateral pleural effusions. IMPRESSION: There are no kidney stones. There is no hydronephrosis..
[2017-09-24 07:38] LABS: Hematocrit 24.3 % (30.3-42.9); Mean Corpuscular HGB Conc 33 % (30-34); Mean Corpuscular Hemoglobin 26 pg (28-32); Mean Corpuscular Volume 80 fl (79-97); Platelet Count 355 K/mm3 (140-440); Red Blood Count 3.04 M/mm3 (3.65-5.03); Red Cell Distribution Width 15.6 % (13.2-15.2)
[2017-09-24] MEDS ORDERED: ZOFRAN PO PRN (07:50)
[2017-09-24] MEDS ORDERED: ZOFRAN ONE (07:53)
[2017-09-24 07:58] LABS: Calcium 8.5 mg/dL (8.4-10.2)
[2017-09-24] MEDS: HumaLOG SUB-Q SCH ×4 (08:15→21:55)
[2017-09-24 08:47] LABS: Alanine Aminotransferase 8 units/L (7-56); Albumin 3.3 g/dL (3.9-5); BUN/Creatinine Ratio 11; Blood Urea Nitrogen 49 mg/dL (7-17); Calcium 8.5 mg/dL (8.4-10.2); Hemolysis Index 0; Iron 44 ug/dL (37-170); Total Iron Binding Capacity 191 mcg/dL (250-450)
[2017-09-24] MEDS ORDERED: HumaLOG SUB-Q ONE ×3 (10:00)
[2017-09-24] MEDS: CATAPRES PO SCH ×2 (10:12→21:53)
[2017-09-24] MEDS: HALFPRIN EC PO SCH (10:13)
[2017-09-24] MEDS: DEEP SEA NS SCH ×4 (10:16→21:55)
--- NOTE | 2017-09-24 10:45 | Progress Note ---
Assessment and Plan - Patient Problems (1) Hypertensive crisis Current Visit: No Status: Acute Plan to address problem: The Blood pressure has improved but still suboptimal. Hydralazine just added. Follow blood pressure on adjusted medications (2) Acute kidney injury superimposed on chronic kidney disease Current Visit: Yes Status: Acute Plan to address problem: Kidney function still worsening. Discussed with the patient and at bedside. Hopefully start to turn around in the next 24-48 hours otherwise will have to discuss about renal replacement therapy. (3) Anemia in chronic kidney disease Current Visit: Yes Status: Acute Plan to address problem: Check iron stores and start Erythropoetin after Blood pressure is controlled if stores adequate (4) Pulmonary edema Current Visit: Yes Status: Acute Plan to address problem: Improved with diuresis (5) Type 2 diabetes mellitus with diabetic chronic kidney disease Current Visit: Yes Status: Acute Plan to address problem: Blood sugar management by primary attending (6) Acute chest pain Current Visit: No Status: Acute Plan to address problem: Work up by shipfitter helper Subjective Date of service: 09/24/17 Principal diagnosis: acute kidney injury, hypertensive urgency Interval history: Patient seen lying in bed. at bedside. She has no complaints. She denies any headache, chest pain, shortness of breath or vomiting. She admits to nausea earlier which has resolved. Also has not had a bowel movement since admission Objective - Exam Narrative Exam: Middle aged -Citizen Of [place] female lying in bed in no acute distress HEENT: NCAT, pink oral mucous membrane Neck: Supple, no venous distention CVS: S1S2 RRR with no murmur, rub or gallop Chest: Clear to auscultation Abdomen: Protuberant, soft, nontender, no organomegaly, bowel sounds are present Extremities: No edema Neuro: Awake, alert no focal deficits - Vital Signs Vital signs: Vital Signs - 12hr 09/23/17 09/24/17 09/24/17 23:34 03:18 07:53 Temperature 98.4 F 98.4 F 97.6 F Pulse Rate 82 79 73 Respiratory 18 18 18 Rate Respiratory Rate [Chest] Blood Pressure 132/63 166/86 170/84 O2 Sat by Pulse 97 98 98 Oximetry 09/24/17 09/24/17 07:54 10:00 Temperature Pulse Rate 73 74 Respiratory Rate Respiratory 18 Rate [Chest] Blood Pressure O2 Sat by Pulse 98 Oximetry - Lab 09/24/17 06:37 09/24/17 06:37 Most recent lab results Calcium 8.5 mg/dL (8.4-10.2) 09/24/17 06:37 Urine Creatinine 88.6 mg/dL (0.1-20.0) H 09/23/17 18:54 Urine Sodium 84 mmol/L 09/23/17 18:54 Urine Total Protein 204 mg/dL (5-11.8) H 09/23/17 18:54
[2017-09-24] MEDS ORDERED: KIONEX PO ONE ×2 (11:33→19:00)
--- NOTE | 2017-09-24 11:34 | Progress Note ---
Assessment and Plan Assessment and plan: 61-year-old -Portuguese female with past medical history significant for hypertension, diabetes mellitus type 2, allergic rhinitis, CKD presented to the emergency department with complaints of chest pressure that has been going on for the last few weeks getting worse since last night. Midsternal chest pressure , 10/10 in intensity, with no radiation, associated with shortness of breath, no alleviating or aggravating factors identified. Patient has associated shortness of breath and minimal feet swelling. Patient ran out of her blood pressure medications for the last couple of weeks because of financial issues. Patient was admitted for chest pain previously in cardiac cath was done 9 months ago and was clean. She also a few years ago was told to follow with gang rider due to her diabetes and abnormal kidney function, however could not f/u because copay was too high. Pt does not know what her baseline kidney function is, last Cr documented here was 1.7mg/dl in 12/2016 but due to loss of insurance has not been able to do the same. On admission she underwent a VQ scan which showed low probablity of PE. She denies use of NSAIDS, or IV contrast exposure. bp on admission was 229/109 Hypertnesive Emergency * Continue current care, but increase frequency of Clonidine to q8hrs Chest pain, likely secondary to Hypertensive crisis * No new chest pain, cardiology following, awaiting stress test Type 2 MN in setting of ROXANNE * Risk factor modification Acute Pulmonary Edema with Shortness of breath * Improved Anemia of chronic disease * Per nephrology Check iron stores and start Erythropoetin after Blood pressure is controlled if stores adequate * May need work up with GI if continues to drop or if positive stress test prior to intervention Acute on chronic renal failure * Scientific Software Engineer input noted. will monitor for 24-48hrs and if no improvement will need renal replacement therapy Diabetes mellitus type 2 * Conitnue accu check and SSI Constipation * Add Dulcolax and lactulose PRN Medication non compliance * Secondary to financial reason. Extensive counseling provided DVT prophylaxis - on heparin Plan discussed with Neprhologist and patient. History Interval history: patient seen and examined in no acute distress. concerning about intermission coordinator prognosis for her kidney Hospitalist Physical - Physical exam Narrative exam: Not in cardiopulmonary distress. The patient appeared well nourished and normally developed. Vital signs as documented. Head exam is unremarkable. No scleral icterus . Neck is without jugular venous distension, thyromegaly, or carotid bruits. Lungs are faint ronchi to auscultation. Cardiac exam reveals regular rate and Rhythm. Abdominal exam reveals normal bowel sounds, no masses, no organomegaly and no aortic enlargement. Extremities trace feet edema. SOFTWARE MAINTENANCE ENGINEER: Alert and oriented 3. No focal weakness. - Constitutional Vitals: Temp Pulse Resp BP Pulse Ox 97.6 F 74 18 170/84 98 09/24/17 07:53 09/24/17 10:00 09/24/17 10:00 09/24/17 07:53 09/24/17 07:54 Results - Labs CBC & Chem 7: 09/24/17 06:37 09/24/17 06:37 Labs: Laboratory Last Values WBC 9.1 K/mm3 (4.5-11.0) 09/24/17 06:37 RBC 3.04 M/mm3 (3.65-5.03) L 09/24/17 06:37 Hgb 8.0 gm/dl (10.1-14.3) L 09/24/17 06:37 Hct 24.3 % (30.3-42.9) L 09/24/17 06:37 MCV 80 fl (79-97) 09/24/17 06:37 MCH 26 pg (28-32) L 09/24/17 06:37 MCHC 33 % (30-34) 09/24/17 06:37 RDW 15.6 % (13.2-15.2) H 09/24/17 06:37 Plt Count 355 K/mm3 (140-440) 09/24/17 06:37 Lymph % (Auto) 30.2 % (13.4-35.0) 09/22/17 21:38 [place] % (Auto) 8.8 % (0.0-7.3) H 09/22/17 21:38 Eos % (Auto) 4.3 % (0.0-4.3) 09/22/17 21:38 Baso % (Auto) 0.7 % (0.0-1.8) 09/22/17 21:38 Lymph # 3.8 K/mm3 (1.2-5.4) 09/22/17 21:38 [place] # 1.1 K/mm3 (0.0-0.8) H 09/22/17 21:38 Eos # 0.5 K/mm3 (0.0-0.4) H 09/22/17 21:38 Baso # 0.1 K/mm3 (0.0-0.1) 09/22/17 21:38 Seg Neutrophils % 56.0 % (40.0-70.0) 09/22/17 21:38 Seg Neutrophils # 7.1 K/mm3 (1.8-7.7) 09/22/17 21:38 D-Dimer 769.69 ng/mlDDU (0-234) H 09/23/17 01:04 Sodium 140 mmol/L (137-145) 09/24/17 06:37 Potassium 5.2 mmol/L (3.6-5.0) H 09/24/17 06:37 Chloride 105.7 mmol/L (98-107) 09/24/17 06:37 Carbon Dioxide 21 mmol/L (22-30) L 09/24/17 06:37 Anion Gap 19 mmol/L 09/24/17 06:37 BUN 49 mg/dL (7-17) H 09/24/17 06:37 Creatinine 4.4 mg/dL (0.7-1.2) H 09/24/17 06:37 Estimated GFR 12 ml/min 09/24/17 06:37 BUN/Creatinine Ratio 11 % 09/24/17 06:37 Glucose 180 mg/dL (65-100) H 09/24/17 06:37 POC Glucose 172 (70-105) H 09/23/17 21:17 Calcium 8.5 mg/dL (8.4-10.2) 09/24/17 06:37 Iron 44 ug/dL (37-170) 09/24/17 06:37 TIBC 191 mcg/dL (250-450) L 09/24/17 06:37 Ferritin 405.3 ng/mL (13.0-400.0) H 09/24/17 06:37 Total Bilirubin < 0.20 mg/dL (0.1-1.2) 09/24/17 06:37 AST 13 units/L (5-40) 09/24/17 06:37 ALT 8 units/L (7-56) 09/24/17 06:37 Alkaline Phosphatase 72 units/L (35-129) 09/24/17 06:37 Troponin T 0.098 ng/mL (0.00-0.029) H 09/23/17 04:21 NT-Pro-B Natriuret Pep 71872 pg/mL (0-900) H 09/23/17 04:21 Total Protein 7.1 g/dL (6.3-8.2) 09/24/17 06:37 Albumin 3.3 g/dL (3.9-5) L 09/24/17 06:37 Albumin/Globulin Ratio 0.9 % 09/24/17 06:37 Triglycerides 234 mg/dL (2-149) H 09/23/17 00:22 Cholesterol 191 mg/dL (50-199) 09/23/17 00:22 LDL Cholesterol Direct 116 mg/dL (50-130) 09/23/17 00:22 HDL Cholesterol 29 mg/dL (40-59) L 09/23/17 00:22 Cholesterol/HDL Ratio 6.58 % 09/23/17 00:22 PTH Intact 220.7 pg/mL (15-65) H 09/23/17 10:48 Urine Color Yellow (Yellow) 09/23/17 18:54 Urine Turbidity Slightly-cloudy (Clear) 09/23/17 18:54 Urine pH 6.0 (5.0-7.0) 09/23/17 18:54 Ur Specific [place] 1.012 (1.003-1.030) 09/23/17 18:54 Urine Protein 100 mg/dl mg/dL (Negative) 09/23/17 18:54 Urine Glucose (UA) 50 mg/dL (Negative) 09/23/17 18:54 Urine Ketones Neg mg/dL (Negative) 09/23/17 18:54 Urine Blood Neg (Negative) 09/23/17 18:54 Urine Nitrite Neg (Negative) 09/23/17 18:54 Urine Bilirubin Neg (Negative) 09/23/17 18:54 Urine Urobilinogen < 2.0 mg/dL (<2.0) 09/23/17 18:54 Ur Leukocyte Esterase Sm (Negative) 09/23/17 18:54 Urine WBC (Auto) 53.0 /HPF (0.0-6.0) H 09/23/17 18:54 Urine RBC (Auto) 5.0 /HPF (0.0-6.0) 09/23/17 18:54 U Epithel Cells (Auto) 1.0 /HPF (0-13.0) 09/23/17 18:54 Urine Bacteria (Auto) 3+ /HPF (Negative) 09/23/17 18:54 Urine Creatinine 88.6 mg/dL (0.1-20.0) H 09/23/17 18:54 Urine Sodium 84 mmol/L 09/23/17 18:54 Urine Total Protein 204 mg/dL (5-11.8) H 09/23/17 18:54
[2017-09-24] MEDS ORDERED: Fluarix Quad 2017-2018(36 MOS+ IM ONE (12:00)
[2017-09-24] MEDS: KIONEX PO ONE ×2 (15:00→16:00)
[2017-09-25] MEDS ORDERED: DULCOLAX PO PRN (03:23)
[2017-09-25] MEDS ORDERED: CEPHULAC PO PRN (03:23)
[2017-09-25] MEDS: CATAPRES PO SCH ×3 (03:45→21:31)
[2017-09-25] MEDS: HEPARIN SUB-Q SCH ×3 (05:37→21:31)
[2017-09-25] MEDS: LASIX PO SCH (05:37)
[2017-09-25] MEDS ORDERED: XANAX PO ONE (06:56)
[2017-09-25] MEDS: HumaLOG SUB-Q SCH ×4 (08:08→23:14)
[2017-09-25] MEDS ORDERED: LEXISCAN IV ONE ×2 (08:09→08:22)
[2017-09-25 08:16] LABS: Basophils % (Auto) 0.5 % (0.0-1.8); Eosinophils # (Auto) 0.5 K/mm3 (0.0-0.4); Eosinophils % (Auto) 4.9 % (0.0-4.3); Hematocrit 25.9 % (30.3-42.9); Hemoglobin 8.3 gm/dl (10.1-14.3); Lymphocytes # (Auto) 2.5 K/mm3 (1.2-5.4); Lymphocytes % (Auto) 26.1 % (13.4-35.0); Mean Corpuscular HGB Conc 32 % (30-34); Mean Corpuscular Volume 81 fl (79-97); Monocytes # (Auto) 1.1 K/mm3 (0.0-0.8); Monocytes % (Auto) 11.3 % (0.0-7.3); Platelet Count 391 K/mm3 (140-440); Red Blood Count 3.22 M/mm3 (3.65-5.03); Red Cell Distribution Width 15.4 % (13.2-15.2)
[2017-09-25 08:20] LABS: Mean Corpuscular Hemoglobin 26 pg (28-32)
[2017-09-25 08:34] LABS: Calcium 8.5 mg/dL (8.4-10.2)
[2017-09-25] MEDS ORDERED: HumaLOG SUB-Q ONE ×3 (10:00)
[2017-09-25] MEDS: FLONASE NS PRN (11:28)
[2017-09-25] MEDS: HALFPRIN EC PO SCH (11:28)
[2017-09-25] MEDS: DEEP SEA NS SCH ×4 (11:31→21:33)
--- NOTE | 2017-09-25 14:15 | Progress Note ---
Assessment and Plan Chest pain- normal cath in 2015 per patient Mildly elevated troponin ? significance in the presence of renal failure HTN Diabetes with peripheral neuropathy Echocardiogram done 09/23/2017 showed EF 55-60% with moderate to severe MR ,and mildly dilated LA. Iv Lexiscan nuclear imaging showed normal perfusion with EF 44%. Cardiac guerrero she appears stable,continue medicaltherapy and f/u as OP. - Patient Problems (1) Elevated troponin Current Visit: Yes Status: Acute Subjective Date of service: 09/25/17 Principal diagnosis: acute kidney injury, hypertensive urgency Interval history: Patient doing well,no chest pain,in stress lab,comfortable. Objective Vital Signs Temp Pulse Resp Resp BP BP BP 09/25/17 13:05 80 148/74 09/25/17 12:31 98.1 F 80 18 148/74 09/25/17 10:24 85 09/25/17 09:55 94 H 165/83 09/25/17 09:54 96 H 154/77 09/25/17 09:53 98 H 155/81 09/25/17 09:52 99 H 170/95 09/25/17 09:51 99 H 154/75 09/25/17 08:49 85 192/91 09/25/17 04:28 98.4 F 84 20 171/78 09/25/17 03:45 79 175/81 09/25/17 00:54 79 18 09/25/17 00:20 98.1 F 79 20 175/81 09/24/17 21:53 84 190/92 09/24/17 20:31 98.0 F 83 20 190/92 09/24/17 17:15 97.3 F L 77 18 190/87 09/24/17 14:00 73 18 165/77 Pulse Ox 09/25/17 13:05 09/25/17 12:31 96 09/25/17 10:24 09/25/17 09:55 09/25/17 09:54 09/25/17 09:53 09/25/17 09:52 09/25/17 09:51 09/25/17 08:49 09/25/17 04:28 94 09/25/17 03:45 09/25/17 00:54 09/25/17 00:20 94 09/24/17 21:53 09/24/17 20:31 95 09/24/17 17:15 97 09/24/17 14:00 98 - Physical Examination Neck: Positive: neck supple Cardiac: Positive: Reg Rate and Rhythm Lungs: Positive: clear to auscultation Neuro: Positive: Grossly Intact Abdomen: Positive: Unremarkable Skin: Negative: Rash Extremities: Absent: edema - Labs and Meds CBC 09/25/17 Range/Units 06:48 WBC 9.5 (4.5-11.0) K/mm3 RBC 3.22 L (3.65-5.03) M/mm3 Hgb 8.3 L (10.1-14.3) gm/dl Hct 25.9 L (30.3-42.9) % Plt Count 391 (140-440) K/mm3 Lymph # 2.5 (1.2-5.4) K/mm3 [place] # 1.1 H (0.0-0.8) K/mm3 Eos # 0.5 H (0.0-0.4) K/mm3 Baso # 0.0 (0.0-0.1) K/mm3 Comprehensive Metabolic Panel 09/25/17 Range/Units 06:48 Sodium 141 (137-145) mmol/L Potassium 4.5 (3.6-5.0) mmol/L Chloride 103.0 (98-107) mmol/L Carbon Dioxide 22 (22-30) mmol/L BUN 47 H (7-17) mg/dL Creatinine 4.5 H (0.7-1.2) mg/dL Glucose 118 H (65-100) mg/dL Calcium 8.5 (8.4-10.2) mg/dL
--- NOTE | 2017-09-25 14:22 | Progress Note ---
Assessment and Plan Patient with elevated troponion had lung scan yesterday,low probability,and scheduled for iv Lexiscan MPI on 09/25/2017. - Patient Problems (1) Elevated troponin Current Visit: Yes Status: Acute Subjective Date of service: 09/24/17 Principal diagnosis: acute kidney injury, hypertensive urgency Interval history: Patient comfortable,sleeping. Objective Vital Signs Temp Pulse Resp Resp BP BP BP 09/25/17 13:05 80 148/74 09/25/17 12:31 98.1 F 80 18 148/74 09/25/17 10:24 85 09/25/17 09:55 94 H 165/83 09/25/17 09:54 96 H 154/77 09/25/17 09:53 98 H 155/81 09/25/17 09:52 99 H 170/95 09/25/17 09:51 99 H 154/75 09/25/17 08:49 85 192/91 09/25/17 04:28 98.4 F 84 20 171/78 09/25/17 03:45 79 175/81 09/25/17 00:54 79 18 09/25/17 00:20 98.1 F 79 20 175/81 09/24/17 21:53 84 190/92 09/24/17 20:31 98.0 F 83 20 190/92 09/24/17 17:15 97.3 F L 77 18 190/87 09/24/17 14:00 73 18 165/77 Pulse Ox 09/25/17 13:05 09/25/17 12:31 96 09/25/17 10:24 09/25/17 09:55 09/25/17 09:54 09/25/17 09:53 09/25/17 09:52 09/25/17 09:51 09/25/17 08:49 09/25/17 04:28 94 09/25/17 03:45 09/25/17 00:54 09/25/17 00:20 94 09/24/17 21:53 09/24/17 20:31 95 09/24/17 17:15 97 09/24/17 14:00 98 - Physical Examination Neck: Positive: neck supple Cardiac: Positive: Reg Rate and Rhythm Lungs: Positive: clear to auscultation Neuro: Positive: Grossly Intact Abdomen: Positive: Unremarkable Skin: Negative: Rash Extremities: Absent: edema - Labs and Meds CBC 09/25/17 Range/Units 06:48 WBC 9.5 (4.5-11.0) K/mm3 RBC 3.22 L (3.65-5.03) M/mm3 Hgb 8.3 L (10.1-14.3) gm/dl Hct 25.9 L (30.3-42.9) % Plt Count 391 (140-440) K/mm3 Lymph # 2.5 (1.2-5.4) K/mm3 [place] # 1.1 H (0.0-0.8) K/mm3 Eos # 0.5 H (0.0-0.4) K/mm3 Baso # 0.0 (0.0-0.1) K/mm3 Comprehensive Metabolic Panel 09/25/17 Range/Units 06:48 Sodium 141 (137-145) mmol/L Potassium 4.5 (3.6-5.0) mmol/L Chloride 103.0 (98-107) mmol/L Carbon Dioxide 22 (22-30) mmol/L BUN 47 H (7-17) mg/dL Creatinine 4.5 H (0.7-1.2) mg/dL Glucose 118 H (65-100) mg/dL Calcium 8.5 (8.4-10.2) mg/dL
--- NOTE | 2017-09-25 15:32 | Progress Note ---
Assessment and Plan - Patient Problems (1) Hypertensive crisis Current Visit: No Status: Acute Plan to address problem: The Blood pressure has improved. Follow blood pressure on current medications (2) Acute kidney injury superimposed on chronic kidney disease Current Visit: Yes Status: Acute Plan to address problem: Kidney function is not significantly changed. Hopefully status to improve tomorrow. Follow up electrolytes and renal function (3) Anemia in chronic kidney disease Current Visit: Yes Status: Acute Plan to address problem: Iron stores are adequate. Start Erythropoetin if blood pressure remains controlled (4) Pulmonary edema Current Visit: Yes Status: Acute Plan to address problem: Improved with diuresis (5) Type 2 diabetes mellitus with diabetic chronic kidney disease Current Visit: Yes Status: Acute Plan to address problem: Blood sugar management by primary attending (6) Acute chest pain Current Visit: No Status: Acute Plan to address problem: Work up by computer help desk specialist Subjective Date of service: 09/25/17 Principal diagnosis: acute kidney injury, hypertensive urgency Interval history: Patient seen lying in bed. Family at bedside. She has no complaints. She denies any headache, chest pain, shortness of breath or vomiting. Objective - Exam Narrative Exam: Middle aged -[place] female lying in bed in no acute distress HEENT: NCAT, pink oral mucous membrane Neck: Supple, no venous distention CVS: S1S2 RRR with no murmur, rub or gallop Chest: Clear to auscultation Abdomen: Protuberant, soft, nontender, no organomegaly, bowel sounds are present Extremities: No edema Neuro: Awake, alert no focal deficits - Vital Signs Vital signs: Vital Signs - 12hr 09/25/17 09/25/17 09/25/17 03:45 04:28 08:49 Temperature 98.4 F Pulse Rate 79 84 85 Respiratory 20 Rate Blood Pressure 175/81 171/78 192/91 O2 Sat by Pulse 94 Oximetry 09/25/17 09/25/17 09/25/17 09:51 09:52 09:53 Temperature Pulse Rate 99 H 99 H 98 H Respiratory Rate Blood Pressure 154/75 170/95 155/81 O2 Sat by Pulse Oximetry 09/25/17 09/25/17 09/25/17 09:54 09:55 10:24 Temperature Pulse Rate 96 H 94 H 85 Respiratory Rate Blood Pressure 154/77 165/83 O2 Sat by Pulse Oximetry 09/25/17 09/25/17 12:31 13:05 Temperature 98.1 F Pulse Rate 80 80 Respiratory 18 Rate Blood Pressure 148/74 148/74 O2 Sat by Pulse 96 Oximetry - Lab 09/25/17 06:48 09/25/17 06:48 Most recent lab results Calcium 8.5 mg/dL (8.4-10.2) 09/25/17 06:48 Urine Creatinine 88.6 mg/dL (0.1-20.0) H 09/23/17 18:54 Urine Sodium 84 mmol/L 09/23/17 18:54 Urine Total Protein 204 mg/dL (5-11.8) H 09/23/17 18:54
--- NOTE | 2017-09-25 15:33 | Discharge Summary ---
Providers - Providers Date of Admission: 09/23/17 02:53 Date of discharge: 09/26/17 Attending physician: SHAAN GUERRA 09/23/17 03:04 Consult to Physician [CONS] Routine Consulting Provider: KATARZYNA YAÑEZ Reason For Exam: chest pain Place consult to:: cardiology Notified:: y Comment:: added to list 09/23/17 03:48 Consult to Physician [CONS] Routine Consulting Provider: AJIT SOLITARIO Reason For Exam: ROX[place] Place consult to:: nephrology Notified:: OFFICE Phone number called:: [phone] Was contact made?: Yes If yes, spoke with:: JANA Time called:: 09:28 Primary care physician: LUIS GARRIDO Hospitalization Condition: Stable Hospital course: Patient is a 61-year-old -Swedish female with past medical history significant for hypertension, diabetes mellitus type 2, allergic rhinitis, CKD presented to the emergency department with complaints of chest pressure that has been going on for the last few weeks getting worse since last night. Midsternal chest pressure, 10/10 in intensity, with no radiation, associated with shortness of breath, no alleviating or aggravating factors identified. Patient has associated shortness of breath and minimal feet swelling. Patient ran out of her blood pressure medications for the last couple of weeks because of financial issues. Patient was admitted for chest pain previously in cardiac cath was done 9 months ago and was clean. She also a few years ago was told to follow with knit goods washer due to her diabetes and abnormal kidney function, however could not f/u because copay was too high. Pt does not know what her baseline kidney function is, last Cr documented here was 1.7mg/dl in 12/2016 but due to loss of insurance has not been able to do the same. On admission she underwent a VQ scan which showed low probability of PE. She denies use of NSAIDS , or IV contrast exposure. bp on admission was 229/109 Hypertnesive Emergency * Continue current care, but increase frequency of Clonidine to q8hrs Chest pain, likely secondary to Hypertensive crisis * No new chest pain, cardiology following, stress test noted per Roofing Laborer Type 2 [place] in setting of [place]OX[place] * Risk factor modification Acute Pulmonary Edema with Shortness of breath * Improved Anemia of chronic disease * Per nephrology Check iron stores and start Erythropoetin after Blood pressure is controlled if stores adequate * May need work up with GI if continues to drop or if positive stress test prior to intervention Acute on chronic renal failure * Sheet Rock Applier input noted. will monitor for 24-48hrs and if no improvement will need renal replacement therapy Diabetes mellitus type 2 * Conitnue accu check and SSI Constipation * Add Dulcolax and lactulose PRN Medication non compliance * Secondary to financial reason. Extensive counseling provided DVT prophylaxis - on heparin Plan discussed with Neprhologist and patient. Disposition: DC-01 TO HOME OR SELFCARE Time spent for discharge: 35 minutes Core Measure Documentation - Palliative Care Palliative Care/ Comfort Measures: Not Applicable - Core Measures Any of the following diagnoses?: none - VTE Discharge Requirements Deep Vein Thrombosis/Pulmonary Embolism Present on Admission: No Has pt received <5 days of overlap therapy or INR<2.0: No Anticoagulant overlap therapy prescribed at discharge: No Contraindication No Overlap Therapy order at DC: Not Indicated Exam - Physical Exam Narrative exam: GEN: WDWN, NAD, AWAKE, ALERT, ORIENTATED x 3 HEENT: NCAT, EOMI, PERRL, OP Clear NECK: supple, no adenopathy, no thyromegaly, no JVD CVS/HEART: RRR, NORMAL S1S2, pulses present bilaterally CHEST/LUNGS: CTA B, Symmetrical chest expansion, good air entry bilaterally GI/Abdomen: soft, NTND, good bowel sounds, no guarding or rebound /Bladder: no suprapubic tenderness, no CVA or paraspinal tenderness EXT/Skin: no c/c/e, no obvious rash MSK: FROM x 4 Neuro: CN 2-12 grossly intact, no new focal deficits Psych: calm - Constitutional Vitals: Temp Pulse Resp BP Pulse Ox 98.1 F 80 18 148/74 96 09/25/17 12:31 09/25/17 13:05 09/25/17 12:31 09/25/17 13:05 09/25/17 12:31 Plan Activity: other (no strenous activities until cleared PCP) Diet: low salt, diabetic Special Instructions: record daily BP diary, record blood sugar diary Follow up with: NICKIE GOLD MD [Staff Physician] - 7 Days LUIS GARRIDO MD [Primary Care Provider] - 3-5 Days Prescriptions: cloNIDine [Catapres] 0.2 mg PO Q8H #90 tablet Furosemide [Lasix TAB] 40 mg PO QDAY@0600 #30 tablet
--- NOTE | 2017-09-25 16:41 | Progress Note ---
Assessment and Plan Assessment and plan: Patient is a 61-year-old -[place] female with past medical history significant for hypertension, diabetes mellitus type 2, allergic rhinitis, CKD presented to the emergency department with complaints of chest pressure that has been going on for the last few weeks getting worse since last night. Midsternal chest pressure, 10/10 in intensity, with no radiation, associated with shortness of breath, no alleviating or aggravating factors identified. Patient has associated shortness of breath and minimal feet swelling. Patient ran out of her blood pressure medications for the last couple of weeks because of financial issues. Patient was admitted for chest pain previously in cardiac cath was done 9 months ago and was clean. She also a few years ago was told to follow with sas programmer due to her diabetes and abnormal kidney function, however could not f/u because copay was too high. Pt does not know what her baseline kidney function is, last Cr documented here was 1.7mg/dl in 12/2016 but due to loss of insurance has not been able to do the same. On admission she underwent a VQ scan which showed low probability of PE. She denies use of NSAIDS , or IV contrast exposure. bp on admission was 229/109 Hypertnesive Emergency * Continue current care, but increase frequency of Clonidine to q8hrs Chest pain, likely secondary to Hypertensive crisis * No new chest pain, cardiology following, stress test noted per Fork Lift Technician Type 2 [place] in setting of [place]OX[place] * Risk factor modification Acute Pulmonary Edema with Shortness of breath * Improved Anemia of chronic disease * Per nephrology Check iron stores and start Erythropoetin after Blood pressure is controlled if stores adequate * May need work up with GI if continues to drop or if positive stress test prior to intervention Acute on chronic renal failure * Entertainment Agent input noted. will monitor for 24-48hrs and if no improvement will need renal replacement therapy Diabetes mellitus type 2 * Conitnue accu check and SSI Constipation * Add Dulcolax and lactulose PRN Medication non compliance * Secondary to financial reason. Extensive counseling provided DVT prophylaxis - on heparin Plan discussed with Neprhologist and patient. D/w Dr. Dean and he wants to keep patient here, Cr has been climbing except for today. He wants to make sure it is steady prior to discharge, so I ordered the BMP for am. Will d/w patient History Interval history: Patient was seen and examined. Follow-up on current diagnosis. Overnight uneventful. Patient denies any chest pain, shortness breath, nausea/vomiting or severe headaches. Imaging, nursing note, chart, labs and old chart reviewed. Discussed with patient. Hospitalist Physical - Physical exam Narrative exam: GEN: WDWN, NAD, AWAKE, ALERT, ORIENTATED x 3 HEENT: NCAT, EOMI, PERRL, OP Clear NECK: supple, no adenopathy, no thyromegaly, no JVD CVS/HEART: RRR, NORMAL S1S2, pulses present bilaterally CHEST/LUNGS: CTA B, Symmetrical chest expansion, good air entry bilaterally GI/Abdomen: soft, NTND, good bowel sounds, no guarding or rebound /Bladder: no suprapubic tenderness, no CVA or paraspinal tenderness EXT/Skin: no c/c/e, no obvious rash MSK: FROM x 4 Neuro: CN 2-12 grossly intact, no new focal deficits Psych: calm - Constitutional Vitals: Temp Pulse Resp BP Pulse Ox 98.1 F 80 18 148/74 96 09/25/17 12:31 09/25/17 13:05 09/25/17 12:31 09/25/17 13:05 09/25/17 12:31 Results - Labs CBC & Chem 7: 09/25/17 06:48 09/25/17 06:48 Labs: Laboratory Last Values WBC 9.5 K/mm3 (4.5-11.0) 09/25/17 06:48 RBC 3.22 M/mm3 (3.65-5.03) L 09/25/17 06:48 Hgb 8.3 gm/dl (10.1-14.3) L 09/25/17 06:48 Hct 25.9 % (30.3-42.9) L 09/25/17 06:48 MCV 81 fl (79-97) 09/25/17 06:48 MCH 26 pg (28-32) L 09/25/17 06:48 MCHC 32 % (30-34) 09/25/17 06:48 RDW 15.4 % (13.2-15.2) H 09/25/17 06:48 Plt Count 391 K/mm3 (140-440) 09/25/17 06:48 Lymph % (Auto) 26.1 % (13.4-35.0) 09/25/17 06:48 [place] % (Auto) 11.3 % (0.0-7.3) H 09/25/17 06:48 Eos % (Auto) 4.9 % (0.0-4.3) H 09/25/17 06:48 Baso % (Auto) 0.5 % (0.0-1.8) 09/25/17 06:48 Lymph # 2.5 K/mm3 (1.2-5.4) 09/25/17 06:48 [place] # 1.1 K/mm3 (0.0-0.8) H 09/25/17 06:48 Eos # 0.5 K/mm3 (0.0-0.4) H 09/25/17 06:48 Baso # 0.0 K/mm3 (0.0-0.1) 09/25/17 06:48 Seg Neutrophils % 57.2 % (40.0-70.0) 09/25/17 06:48 Seg Neutrophils # 5.4 K/mm3 (1.8-7.7) 09/25/17 06:48 D-Dimer 769.69 ng/mlDDU (0-234) H 09/23/17 01:04 Sodium 141 mmol/L (137-145) 09/25/17 06:48 Potassium 4.5 mmol/L (3.6-5.0) 09/25/17 06:48 Chloride 103.0 mmol/L (98-107) 09/25/17 06:48 Carbon Dioxide 22 mmol/L (22-30) 09/25/17 06:48 Anion Gap 21 mmol/L 09/25/17 06:48 BUN 47 mg/dL (7-17) H 09/25/17 06:48 Creatinine 4.5 mg/dL (0.7-1.2) H 09/25/17 06:48 Estimated GFR 12 ml/min 09/25/17 06:48 BUN/Creatinine Ratio 10 % 09/25/17 06:48 Glucose 118 mg/dL (65-100) H 09/25/17 06:48 POC Glucose 230 (70-105) H 09/25/17 12:37 Calcium 8.5 mg/dL (8.4-10.2) 09/25/17 06:48 Iron 48 ug/dL (37-170) 09/25/17 06:48 TIBC 191 mcg/dL (250-450) L 09/24/17 06:37 Ferritin 472.5 ng/mL (13.0-400.0) H 09/25/17 06:48 Total Bilirubin < 0.20 mg/dL (0.1-1.2) 09/24/17 06:37 AST 13 units/L (5-40) 09/24/17 06:37 ALT 8 units/L (7-56) 09/24/17 06:37 Alkaline Phosphatase 72 units/L (35-129) 09/24/17 06:37 Troponin T 0.098 ng/mL (0.00-0.029) H 09/23/17 04:21 NT-Pro-B Natriuret Pep 83132 pg/mL (0-900) H 09/23/17 04:21 Total Protein 7.1 g/dL (6.3-8.2) 09/24/17 06:37 Albumin 3.3 g/dL (3.9-5) L 09/24/17 06:37 Albumin/Globulin Ratio 0.9 % 09/24/17 06:37 Triglycerides 234 mg/dL (2-149) H 09/23/17 00:22 Cholesterol 191 mg/dL (50-199) 09/23/17 00:22 LDL Cholesterol Direct 116 mg/dL (50-130) 09/23/17 00:22 HDL Cholesterol 29 mg/dL (40-59) L 09/23/17 00:22 Cholesterol/HDL Ratio 6.58 % 09/23/17 00:22 PTH Intact 220.7 pg/mL (15-65) H 09/23/17 10:48 Urine Color Yellow (Yellow) 09/23/17 18:54 Urine Turbidity Slightly-cloudy (Clear) 09/23/17 18:54 Urine pH 6.0 (5.0-7.0) 09/23/17 18:54 Ur Specific Sacul 1.012 (1.003-1.030) 09/23/17 18:54 Urine Protein 100 mg/dl mg/dL (Negative) 09/23/17 18:54 Urine Glucose (UA) 50 mg/dL (Negative) 09/23/17 18:54 Urine Ketones Neg mg/dL (Negative) 09/23/17 18:54 Urine Blood Neg (Negative) 09/23/17 18:54 Urine Nitrite Neg (Negative) 09/23/17 18:54 Urine Bilirubin Neg (Negative) 09/23/17 18:54 Urine Urobilinogen < 2.0 mg/dL (<2.0) 03 18:54 Ur Leukocyte Esterase Sm (Negative) 09/23/17 18:54 Urine WBC (Auto) 53.0 /HPF (0.0-6.0) H 09/23/17 18:54 Urine RBC (Auto) 5.0 /HPF (0.0-6.0) 09/23/17 18:54 U Epithel Cells (Auto) 1.0 /HPF (0-13.0) 09/23/17 18:54 Urine Bacteria (Auto) 3+ /HPF (Negative) 09/23/17 18:54 Urine Creatinine 88.6 mg/dL (0.1-20.0) H 09/23/17 18:54 Urine Sodium 84 mmol/L 09/23/17 18:54 Urine Total Protein 204 mg/dL (5-11.8) H 09/23/17 18:54
[2017-09-26] MEDS: CATAPRES PO SCH (04:59)
[2017-09-26] MEDS: LASIX PO SCH (05:23)
[2017-09-26] MEDS: HEPARIN SUB-Q SCH (05:23)
[2017-09-26 06:58] LABS: Calcium 8.4 mg/dL (8.4-10.2)
--- NOTE | 2017-09-26 09:14 | Progress Note ---
Assessment and Plan - Patient Problems (1) Hypertensive crisis Current Visit: No Status: Acute Plan to address problem: The Blood pressure has improved. Follow blood pressure on current medications (2) Acute kidney injury superimposed on chronic kidney disease Current Visit: Yes Status: Acute Plan to address problem: Kidney function is not significantly changed. Hopefully status to improve tomorrow. Follow up electrolytes and renal function (3) Anemia in chronic kidney disease Current Visit: Yes Status: Acute Plan to address problem: Iron stores are adequate. Start Erythropoetin if blood pressure remains controlled (4) Pulmonary edema Current Visit: Yes Status: Acute Plan to address problem: Improved with diuresis (5) Type 2 diabetes mellitus with diabetic chronic kidney disease Current Visit: Yes Status: Acute Plan to address problem: Blood sugar management by primary attending (6) Acute chest pain Current Visit: No Status: Acute Plan to address problem: Work up by metal sprayer protective coating Subjective Date of service: 09/26/17 Principal diagnosis: acute kidney injury, hypertensive urgency Interval history: Patient seen lying in bed. No Family at bedside. She has no complaints. She denies any headache, chest pain, shortness of breath or vomiting. Objective - Exam Narrative Exam: Middle aged -[place] female lying in bed in no acute distress HEENT: NCAT, pink oral mucous membrane Neck: Supple, no venous distention CVS: S1S2 RRR with no murmur, rub or gallop Chest: Clear to auscultation Abdomen: Protuberant, soft, nontender, no organomegaly, bowel sounds are present Extremities: No edema Neuro: Awake, alert no focal deficits - Vital Signs Vital signs: Vital Signs - 12hr 09/25/17 09/26/17 09/26/17 22:00 00:19 04:28 Temperature 97.5 F L 98.0 F Pulse Rate 74 76 Respiratory 18 18 Rate Respiratory 18 Rate [Chest] Blood Pressure 192/86 164/70 O2 Sat by Pulse 95 96 Oximetry 09/26/17 08:15 Temperature 97.9 F Pulse Rate 76 Respiratory 18 Rate Respiratory Rate [Chest] Blood Pressure 166/71 O2 Sat by Pulse 97 Oximetry - Lab 09/25/17 06:48 09/26/17 05:58 Most recent lab results Calcium 8.4 mg/dL (8.4-10.2) 09/26/17 05:58 Urine Creatinine 88.6 mg/dL (0.1-20.0) H 09/23/17 18:54 Urine Sodium 84 mmol/L 09/23/17 18:54 Urine Total Protein 204 mg/dL (5-11.8) H 09/23/17 18:54
[2017-09-26] MEDS: HumaLOG SUB-Q SCH (09:26)
[2017-09-26] MEDS: DEEP SEA NS SCH (09:27)
[2017-09-26] MEDS: HALFPRIN EC PO SCH (09:27)
[2017-09-26] MEDS ORDERED: LOPRESSOR PO SCH (10:00)
--- NOTE | 2017-09-26 11:39 | Progress Note ---
Assessment and Plan Assessment: Chest pain, atypical - currently resolved, normal cath in 2015 per patient Mildly elevated troponin - ? significance in the presence of renal failure Hypertensive crisis - improving Anemia Diabetes with peripheral neuropathy Elevated DDimer - V/Q low prob for PE Plan: IV Lexiscan nuclear imaging showed normal perfusion with EF 44%. Cardiac guerrero she appears stable,continue medical therapy and f/u as OP. Recommend follow up in our office with Lidia Willson NP, within 1-2 weeks of hospital discharge ([phone]). The patient has been seen in conjunction with Dr. Solorzano who agrees with the assessment and plan of care. Subjective Date of service: 09/26/17 Principal diagnosis: acute kidney injury, hypertensive urgency Interval history: pt resting comfortably in bed, denies any current complaints. Objective Last Vital Signs Temp 97.9 F 09/26/17 08:15 Pulse 76 09/26/17 08:15 Resp 18 09/26/17 08:15 BP 166/71 09/26/17 08:15 Pulse Ox 97 09/26/17 08:15 - Physical Examination General: No Apparent Distress HEENT: Positive: PERRL, Normocephaly, Mucus Membranes Moist Neck: Positive: neck supple Cardiac: Positive: Reg Rate and Rhythm, S1/S2 Lungs: Positive: clear to auscultation Neuro: Positive: Grossly Intact Abdomen: Positive: Unremarkable Skin: Negative: Rash Extremities: Absent: edema - Labs and Meds Comprehensive Metabolic Panel 09/26/17 Range/Units 05:58 Sodium 137 (137-145) mmol/L Potassium 4.1 (3.6-5.0) mmol/L Chloride 101.0 (98-107) mmol/L Carbon Dioxide 21 L (22-30) mmol/L BUN 48 H (7-17) mg/dL Creatinine 4.4 H (0.7-1.2) mg/dL Glucose 124 H (65-100) mg/dL Calcium 8.4 (8.4-10.2) mg/dL
[2017-09-26] MEDS ORDERED: APRESOLINE PO SCH (14:00)
[2017-09-26 14:03] VITALS: BP 118/62
== END 2017-09-26 15:20 | disposition home or self-care (01) | DRG 280 ==
LOC: ED 21:10 → 4A 09-23 02:53
PROVIDERS: ADMIT Internal Medicine; ATTEND Internal Medicine
PROC: 3E0234Z Introduction of Serum, Toxoid and Vaccine into Muscle, Percutaneous Approach (ICD-10-PCS; principal; 2017-09-24)
DX: I21.A1 Myocardial infarction type 2 (principal); J81.0 Acute pulmonary edema; N17.9 Acute kidney failure, unspecified; I16.1 Hypertensive emergency; I16.9 Hypertensive crisis, unspecified; I16.0 Hypertensive urgency; K59.00 Constipation, unspecified; E11.22 Type 2 diabetes mellitus with diabetic chronic kidney disease; E11.42 Type 2 diabetes mellitus with diabetic polyneuropathy; N18.9 Chronic kidney disease, unspecified; I12.9 Hypertensive chronic kidney disease with stage 1 through stage 4 chronic kidney disease, or unspecified chronic kidney disease; R74.8 Abnormal levels of other serum enzymes; R07.9 Chest pain, unspecified; Z23 Encounter for immunization; Z79.82 Long term (current) use of aspirin; Z79.84 Long term (current) use of oral hypoglycemic drugs; Z91.041 Radiographic dye allergy status; Z90.710 Acquired absence of both cervix and uterus; Z82.49 Family history of ischemic heart disease and other diseases of the circulatory system; Z83.3 Family history of diabetes mellitus; Z91.14 Patient's other noncompliance with medication regimen
CPT/HCPCS: 36415; 71046; 76770; 78452; 78582; 80048; 80053; 80061; 81001; 82570; 82728; 82962; 83540; 83550; 83880; 83970; 84156; 84300; 84484; 85025; 85027; 85379; 86160; 90686; 93005; 93010; 93017; 93306; 96374; A9502; A9540; A9558; J0360; J1644; J1815; J2405; J2785